=== PATIENT | female | born 1990 | race Caucasian/White ===

== ENCOUNTER 2022-05-26 11:37 | Emergency (ER) | payer BC, SELFPAY ==
[2022-05-26 12:06] VITALS: BP 109/71; PULSE 97; RESP 14; TEMP 36.7; O2SAT 98; BMI 21.9
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
[2022-05-26] MEDS: tetracaine 0.5% Op Soln 4 mL Btl 2 DROP EYE-LEFT (14:04)
== END 2022-05-26 14:25 | disposition home or self-care (01) ==
PROVIDERS: Emergency Provider Physician Assistant
DX: S05.02XA Injury of conjunctiva and corneal abrasion without foreign body, left eye, initial encounter (principal); S00.12XA Contusion of left eyelid and periocular area, initial encounter; W22.8XXA Striking against or struck by other objects, initial encounter
CPT/HCPCS: 70480; 99284